=== PATIENT | male | born 1965 | race Caucasian/White ===

== ENCOUNTER → 2018-07-27 09:59 | Outpatient (CLI) | payer OTHER, SELFPAY ==
[2018-07-27 10:48] LABS: Absolute Lymphocyte Count 0.99 X10^3/ul (0.83-4.51); Absolute Neutrophil Count 6.7 X10^3/uL (2.0-7.7); Basophil# 0.03 X10^3/uL; Basophil% 0.3 % (0-1); Eosinophil# 0.16 X10^3/uL; Eosinophils% 1.8 % (0-5); Hematocrit 39.4 % (40-54); Hemoglobin 13.4 g/dl (13.0-16.5); Lymphocyte # 0.99 X10^3/ul (4.0); Lymphocyte % 11.3 % (19-41); Mean Corpuscular Hgb 28.6 pg (27.0-32.0); Mean Corpuscular Volume 84.2 fL (80-94); Mean Platelet Vol. 10.2 fl (6.2-12.0); Monocyte# 0.83 X10^3/uL; Monocyte% 9.5 % (0-10); Neutrophil # 6.74 X10^3/uL (2.7-7.7); Neutrophil % 76.8 % (47-70); POSITIVE COUNT NO; POSITIVE DIFFERENTIAL NO; POSITIVE MORPHOLOGY NO; Platelet Count 261 K/mm3 (150-450); RBC Distribution Width CV 12.3 % (11.6-14.6); RBC Distribution Width SD 37.2 fl (35.1-43.9); Red Blood Count 4.68 M/mm3 (4.6-6.2); White Blood Count 8.8 K/mm3 (4.4-11.0)
[2018-07-27 10:59] LABS: Erythrocyte Sedimentation Rate 14 mm/hr (0-20)
== END ==
PROVIDERS: Family Provider Family Medicine; PCP Family Medicine; Visit Provider Family Medicine
DX: R50.9 Fever, unspecified (principal)
CPT/HCPCS: 36415; 85025; 85652

== ENCOUNTER → 2019-06-07 08:02 | Outpatient (CLI) | payer OTHER, SELFPAY ==
[2019-06-04 13:48] VITALS: BMI 26.2
[2019-06-07 12:38] LABS: Hemoglobin A1c 6.2 % (4.2-6.3)
[2019-06-07 12:39] LABS: ALB/GLOB Ratio 1.2 RATIO (0.9-2.4); AST(SGOT) 25 U/L (15-37); Alanine Aminotransfer ALT/SGPT 49 U/L (16-61); Albumin, Serum 4.1 g/dL (3.2-5.0); Alkaline Phosphatase 53 U/L (45-117); Anion Gap 7 (5-15); BUN 16 mg/dL (7-18); BUN/Creat Ratio 13.1 RATIO (10-20); Calcium,Total 9.5 mg/dL (8.5-10.1); Chloride 109 mmol/L (98-107); Cholesterol 155 mg/dL (200); Creatinine, Serum 1.22 mg/dL (0.70-1.30); EST Glomerular Filtration Rate 65 mL/min (>60); Est Glom Filt Rate - Afr Amer 79 mL/min (>60); Globulin 3.5 g/dL (2.2-4.2); Glucose 116 mg/dL (74-106); High Density Lipoprotein 38 mg/dL; Potassium 4.2 mmol/L (3.5-5.1); Protein, Total 7.6 g/dL (6.4-8.2); Sodium Level 142 mmol/L (136-145); Triglycerides 170 mg/dL; Very Low Density Lipoprotein 34 mg/dL (5-40)
== END ==
PROVIDERS: Family Provider Family Medicine; PCP Family Medicine; Visit Provider Family Medicine
DX: E78.5 Hyperlipidemia, unspecified (principal); R73.09 Other abnormal glucose
CPT/HCPCS: 36415; 80053; 80061; 83036

== ENCOUNTER → 2019-12-04 09:25 | Outpatient (CLI) | payer OTHER, SELFPAY ==
[2019-12-04 09:09] VITALS: BMI 26.0
[2019-12-04 12:44] LABS: PSA,Total - Annual Screen 0.09 ng/mL (0.00-4.00)
== END ==
PROVIDERS: Family Provider Family Medicine; PCP Family Medicine; Visit Provider Family Medicine
DX: R35.0 Frequency of micturition (principal)
CPT/HCPCS: 36415; 84153; G0103

== ENCOUNTER 2019-12-27 07:48 | Day surgery (SDC) | payer OTHER, SELFPAY ==
[2019-12-04 09:09] VITALS: BMI 26.0
[2019-12-27 08:00] VITALS: BP 123/97; PULSE 83; RESP 16; TEMP 36.2; O2SAT 97; BMI 25.9
[2019-12-27] MEDS: Lactated Ringers 1,000 ML 75 ML IV (08:33)
--- NOTE | 2019-12-27 08:41 | H&P.OPEN ---
History of Present Illness Date of Admission: 12/27/19 The patient is a 54 year old M here for screening colonoscopy. Patient is never had a colonoscopy in the past he reports no blood in his stool or abdominal pain. He denies family history of colon cancer. Past Medical/Surgical History - Planned Operation Planned Operative Procedure/s: COLONOSCOPY Date of Operative Procedure: 12/27/19 Permit Signed: Yes S.O.S: No Is This Patient Having a Total Joint: No - Previous Hospitalizations/Surgeries HX Hospitalizations: No HX of Surgeries: WISDOM TEETH. TEETH EXTRACTION Any Problems With Anesthesia: No You/Your Family Experience Fever (Hyperthermia) With Anes: No Cholinesterase deficiency: No - Cardiovascular Hx Chest Pain within Last 2 months: No Hx of Irregular Heartbeat and/or Afib: No Hx Heart Attack: No Hx Congestive Heart Failure: No Hx Rheumatic Fever: No Hx Hypertension: Yes - ON MED, CONTROLLED Hx Internal Defibrillator: No Hx Pacemaker: No Hx Cardiac Catheterization: No Hx Cardiac Surgery/Stents/Etc.: No Hx Stress Test: No HX Edema: No Hx Pain in Legs when Walking/Leg Cramps: No - Respiratory Chronic Cough: No HX of Shortness of Breath: No Hoarseness: No Hx Chronic Obstructive Pulmonary Disease (COPD): No Hx Asthma: No Hx Emphysema: No Hx Sleep Apnea: No Hx Oxygen Use at Home: No Hx Respiratory Tract Infection/Cold (presently): No Do You Snore Loudly (louder than talking or can be heard): Yes Do You Often Feel Tired/ Fatigued/ Sleepy Dring Daytime?: No Has Anyone Observed You Stop Breathing During Sleep?: No Result (for STOP score): Positive Hx Smoking: Yes Smoking Status: Former smoker - Gastrointestinal Hx Gastroesophageal Reflux: No Hx Gastrointestinal Disorders: No Hx Gastrointestinal Bleed: No Hx Ulcer: No Hx Hiatal Hernia: No Difficulty Chewing/Swallowing: No Recent Onset of Swallowing Problems: No Special diet followed at home: No Hx Unplanned Weight Loss of 20#: No HX Unplanned Weight Gain of 20#: No - Neurological Hx Seizures: No HX Syncope/Blackout Spells/Unconsciousness: No Hx CVA/Stroke: No Hx Transient Ischemic Attacks (TIA): No Hx Multiple Sclerosis: No Hx Parkinson's Disease: No Hx Head/Neck Injury: No Hx Headaches: No Hx Back Injury/Pain: No Recent Onset of Speech Difficulty: No Restless Legs: No Does patient have nerve stimulator: No - Blood Disorder Hx Leukemia: No Bleeding Tendencies: No Hx Deep Vein Thrombosis: No Hx High Cholesterol: Yes - ON MED Blood Transmitted Disease: No Hx Hepatitis: No Hx Cirrhosis: No Hx Anemia: No Hx Blood Disorders: No - Genitourinary Hx Renal Disease: No - Musculoskeletal Hx Arthritis: No Hx Rheumatoid Arthritis: No Hx Gout: No Recent Onset of an Orthopedic Problem: No - Endocrine Hx Diabetes: No Thyroid Disease: No Hx Steroid Therapy: No - Psycho/Social Hx Substance Use: No Hx Alcohol Use: Yes - DAILY-2 BEERS DAILY Hx Anxiety: No Hx Depression: No Mental Illness: No Hx Dementia: No - Miscellaneous Hx Cancer: No Recent Exposure to Contagious Disease: No Active MRSA: No Hx of C-Diff: No Any Loose Teeth: No Allergies nuts Allergy (Intermediate, Uncoded 12/26/19 09:00) Swelling tongue - Discharge Is Pt Admitted From a Group Home, or a Long-Term: No Who Could Help: After D/C, Where Do you Plan to Go: Return Home - Physical Exam Vitals/I&O's: Vital Signs Temp Pulse Resp BP Pulse Ox 97.1 F L 83 16 123/97 H 97 12/27/19 08:00 12/27/19 08:00 12/27/19 08:00 12/27/19 08:00 12/27/19 08:00 Oxygen Delivery Method Room Air Weight: 170 lb 3.15 oz Body Mass Index (BMI) 25.9 General: Alert, Oriented x3 Neck: Supple, No JVD Lungs: Normal air movement Cardiovascular: Regular rate, Regular Rhythm Abdomen: Soft, Non Tender, Non-Distended Current Medications Lactated Ringer's () 1,000 mls @ 75 mls/hr IV .[id number] Last Admin: 12/27/19 08:33 Dose: 75 mls/hr Documented by: Assessment/Plan 54-year-old male screening colon cancer I explained endoscopy in detail to the patient. I explained the risks including but not limited to stroke or heart attack with anesthesia, perforation of the GI tract, bleeding, infection. I explained that any of these could necessitate further emergency surgery. The patient understands and all questions were answered sufficiently. The patient wishes to proceed with procedure. Carl Casey MD Pager: [facility] [address] [place] [address], [address] [place] [address] Office: Surgery Risks - Colonoscopy Risks Include but are not Limited To: Risks include but are not limited to: Bleeding, perforation requiring further surgery, inability to complete colonoscopy requiring barium enema.
--- NOTE | 2019-12-27 09:00 | COLBX_PTH ---
PATIENT: ERLIN BARNES LOC: EN U#:[id number] AGE/SX: 54/M ROOM: RE12/27/[address]: Dr. Carl Casey MD : 1965 BED: DIS: 12/27/2019 SPEC #: [id number] RECD: 12/27/19 13:29 STATUS: EMIGDIO SHAW #: [id number] NEL: 12/27/19 09:[address]: Carl Casey DEPT: SURGICAL PATHOLOGY RECD BY: Mayte Rodriguez ENTERED: 12/27/19 14:15 SP TYPE: COLON BX OT DR: Dr. Clive Araujo, DO Tissues: A - Descending colon B - Rectum, NOS Procedures: Surgery Specimen Level IV HEADER OPERATION: Colonoscopy - open access (MAC) PRE-OP DIAGNOSIS: Screening TISSUE SUBMITTED: A - Descending colon polyp biopsy, B - Rectal polyp biopsy MICROSCOPIC DIAGNOSIS A. Descending colon polyp, biopsy: A fragment of colonic mucosa, no pathologic diagnosis. B. Rectal polyp, biopsy: Hyperplastic polyp. SJ:maryjane 12/30/19 MICROSCOPIC DESCRIPTION Slides are reviewed. GROSS DESCRIPTION A - Received in fixative is one container labeled with the patient's name and designated descending colon polyp. The specimen consists of one irregular fragment of light hooper soft tissue that measures 0.3 x 0.2 x <0.1 cm. The specimen is totally submitted in one cassette. B - Received in fixative is one container labeled with the patient's name and designated rectal polyp. The specimen consists of one irregular fragment of light hooper soft tissue that measures 0.4 x 0.3 x 0.1 cm. The specimen is totally submitted in one cassette. / AM:maryjane 12/27/19 TC:1 CPT: 38077 x2
--- NOTE | 2019-12-27 09:07 | OP.CCLET_ITS ---
12/27/2019 Clive Araujo Re : Colonoscopy procedure for Vickey Justice Dear Dr. Araujo This procedure was performed on Friday, December 27, 2019. My impressions and recommendations are as follows: Impressions : - Two small polyps in the rectum and in the descending colon, removed with a cold biopsy forceps. Resected and retrieved. - The examination was otherwise normal on direct and retroflexion views. Recommendations : - Discharge patient to home. - Resume previous diet. - Continue present medications. - Await pathology results. - Repeat colonoscopy for surveillance based on pathology results. My findings are described in the full procedure note, which is enclosed. If I can be of further assistance, please feel free to contact me at Doctor phone number(s): , Work: . Sincerely, Carl Casey MD 12/27/2019 9:07:08 AM This report has been signed electronically.
--- NOTE | 2019-12-27 09:07 | OP.COLON_ITS ---
Patient Name: Vickey Justice Procedure Date: 12/27/2019 8:38 AM Date of : 1965 Age: 54 Procedure: Colonoscopy Indications: Screening for colorectal malignant neoplasm Providers: Carl Casey MD Referring MD: Clive Araujo Medicines: Monitored Anesthesia Care Patient Profile: This is a 54 year old male. Refer to note in patient chart for documentation of history and physical. Last Colonoscopy: none. The patient's first colonoscopy is today. Complications: No immediate complications. Estimated blood loss: Minimal. Procedure: Pre-Anesthesia Assessment: - Prior to the procedure, a History and Physical was performed, and patient medications and allergies were reviewed. The patient's tolerance of previous anesthesia was also reviewed. The risks and benefits of the procedure and the sedation options and risks were discussed with the patient. All questions were answered, and informed consent was obtained. Prior Anticoagulants: The patient has taken no previous anticoagulant or antiplatelet agents. After reviewing the risks and benefits, the patient was deemed in satisfactory condition to undergo the procedure. After I obtained informed consent, the scope was passed under direct vision. Throughout the procedure, the patient's blood pressure, pulse, and oxygen saturations were monitored continuously. The Colonoscope was introduced through the anus and advanced to the cecum, identified by appendiceal orifice and ileocecal valve. The colonoscopy was performed without difficulty. The patient tolerated the procedure well. The quality of the bowel preparation was good. Scope In: 8:52:50 AM Scope Withdrawal Time 0 hours 7 minutes 14 seconds Scope Out: 9:04:06 AM Total Procedure Duration Time 0 hours 11 minutes 16 seconds Findings: Two polyps were found in the rectum and descending colon. The polyps were small in size. These polyps were removed with a cold biopsy forceps. Resection and retrieval were complete. The exam was otherwise without abnormality on direct and retroflexion views. Impression: - Two small polyps in the rectum and in the descending colon, removed with a cold biopsy forceps. Resected and retrieved. - The examination was otherwise normal on direct and retroflexion views. Recommendation: - Discharge patient to home. - Resume previous diet. - Continue present medications. - Await pathology results. - Repeat colonoscopy for surveillance based on pathology results. Procedure Code(s): --- Professional --- 92159, Colonoscopy, flexible; with biopsy, single or multiple Diagnosis Code(s): --- Professional --- Z12.11, Encounter for screening for malignant neoplasm of colon K62.1, Rectal polyp D12.4, Benign neoplasm of descending colon CPT copyright 2017 [employer]. All rights reserved. The codes documented in this report are preliminary and upon critical power technician review may be revised to meet current compliance requirements. Carl Casey MD 12/27/2019 9:07:08 AM This report has been signed electronically. Number of Addenda: 0 Note Initiated On: 12/27/2019 8:38 AM
[2019-12-27 09:09] VITALS: BP 108/84; BP 123/97; PULSE 72; RESP 16; TEMP 36.2; O2SAT 98
[2019-12-27 09:12] VITALS: BP 103/74; BP 123/97; PULSE 80; RESP 16; O2SAT 99
[2019-12-27 09:15] VITALS: BP 103/76; BP 123/97; PULSE 73; RESP 16; O2SAT 97
[2019-12-27 09:21] VITALS: BP 105/78; BP 123/97; PULSE 72; RESP 16; TEMP 36.5; O2SAT 97
[2019-12-27 09:46] VITALS: BP 123/97
== END 2019-12-27 09:47 | disposition home or self-care (01) ==
LOC: EN 07:48 → AC 07:50
PROVIDERS: PCP Family Medicine; Referring Provider Family Medicine; Visit Provider Surgery
PROC: 0DJD8ZZ Inspection of Lower Intestinal Tract, Via Natural or Artificial Opening Endoscopic (ICD-10-PCS; CPT 45378; principal; 2019-12-27 08:55)
DX: Z12.11 Encounter for screening for malignant neoplasm of colon (principal); D12.4 Benign neoplasm of descending colon; K62.1 Rectal polyp; I10 Essential (primary) hypertension; E78.00 Pure hypercholesterolemia, unspecified; Z79.899 Other long term (current) drug therapy; Z87.891 Personal history of nicotine dependence
CPT/HCPCS: 45380; 88305; J7120

== ENCOUNTER → 2020-06-12 09:48 | Outpatient (CLI) | payer OTHER, SELFPAY ==
[2020-06-12 09:17] VITALS: BMI 25.9
[2020-06-12 12:34] LABS: Color, Urine Yellow (Yellow); Glucose, Dipstick Normal (Normal); Ketone-Dipstick Negative (Negative); Leukocyte Esterase-Dipstick Negative /ul (Negative); Nitrite-Dipstick Negative (Negative); Occult Blood-Urine Negative /ul (Negative); Protein-Dipstick Negative (Negative); Specific Gravity, Urine 1.025 (1.002-1.030); Urine Bilirubin Dipstick Negative (Negative); Urine Clarity Clear (Clear); Urine Urobilinogen Normal (Normal)
[2020-06-12 12:48] LABS: ALB/GLOB Ratio 1.4 RATIO (0.9-2.4); AST(SGOT) 25 U/L (15-37); Alanine Aminotransfer ALT/SGPT 59 U/L (16-61); Albumin, Serum 4.5 g/dL (3.2-5.0); Alkaline Phosphatase 45 U/L (45-117); Anion Gap 5 (5-15); BUN 17 mg/dL (7-18); BUN/Creat Ratio 14.8 RATIO (10-20); Calcium,Total 9.3 mg/dL (8.5-10.1); Chloride 108 mmol/L (98-107); Cholesterol 160 mg/dL (200); Creatinine, Serum 1.15 mg/dL (0.70-1.30); EST Glomerular Filtration Rate 70 mL/min (>60); Est Glom Filt Rate - Afr Amer 84 mL/min (>60); Globulin 3.3 g/dL (2.2-4.2); Glucose 120 mg/dL (74-106); High Density Lipoprotein 38 mg/dL; Potassium 4.4 mmol/L (3.5-5.1); Protein, Total 7.8 g/dL (6.4-8.2); Sodium Level 140 mmol/L (136-145); Triglycerides 178 mg/dL; Very Low Density Lipoprotein 36 mg/dL (5-40)
== END ==
PROVIDERS: PCP Family Medicine; Referring Provider Family Medicine; Visit Provider Family Medicine
DX: E78.5 Hyperlipidemia, unspecified (principal); R39.15 Urgency of urination
CPT/HCPCS: 36415; 80053; 80061; 81002

== ENCOUNTER → 2020-12-10 09:03 | Outpatient (CLI) | payer OTHER, SELFPAY ==
[2020-12-10 08:40] VITALS: BMI 27.3
== END ==
PROVIDERS: PCP Family Medicine; Referring Provider Family Medicine; Visit Provider Family Medicine
DX: N40.1 Benign prostatic hyperplasia with lower urinary tract symptoms (principal); R35.1 Nocturia
CPT/HCPCS: 36415; 84153; G0103

== ENCOUNTER → 2021-06-24 08:54 | Outpatient (CLI) | payer OTHER, SELFPAY ==
[2021-06-24 08:36] VITALS: BMI 27.3
[2021-06-24 12:49] LABS: ALB/GLOB Ratio 1.2 RATIO (0.9-2.4); AST(SGOT) 34 U/L (15-37); Alanine Aminotransfer ALT/SGPT 63 U/L (16-61); Albumin, Serum 4.1 g/dL (3.2-5.0); Alkaline Phosphatase 51 U/L (45-117); Anion Gap 8 (5-15); BUN 14 mg/dL (7-18); BUN/Creat Ratio 12.1 RATIO (10-20); Calcium,Total 9.3 mg/dL (8.5-10.1); Chloride 105 mmol/L (98-107); Cholesterol 157 mg/dL (200); Creatinine, Serum 1.16 mg/dL (0.70-1.30); EST Glomerular Filtration Rate 69 mL/min (>60); Est Glom Filt Rate - Afr Amer 83 mL/min (>60); Globulin 3.5 g/dL (2.2-4.2); Glucose 142 mg/dL (74-106); High Density Lipoprotein 34 mg/dL; PSA,Total- Diagnostic 0.11 ng/mL (0.0-4.0); Potassium 4.1 mmol/L (3.5-5.1); Protein, Total 7.6 g/dL (6.4-8.2); Sodium Level 139 mmol/L (136-145); Triglycerides 190 mg/dL; Very Low Density Lipoprotein 38 mg/dL (5-40)
== END ==
PROVIDERS: PCP Family Medicine; Referring Provider Family Medicine; Visit Provider Family Medicine
DX: I10 Essential (primary) hypertension (principal); E78.5 Hyperlipidemia, unspecified
CPT/HCPCS: 36415; 80053; 80061; 84153

== ENCOUNTER → 2021-07-02 10:12 | Outpatient (CLI) | payer OTHER, SELFPAY ==
[2021-06-24 08:36] VITALS: BMI 27.3
[2021-07-02 12:41] LABS: Hemoglobin A1c 6.4 % (3.8-5.6)
== END ==
PROVIDERS: PCP Family Medicine; Referring Provider Family Medicine; Visit Provider Family Medicine
DX: R73.09 Other abnormal glucose (principal)
CPT/HCPCS: 36415; 83036

== ENCOUNTER → 2023-01-04 | Outpatient (CLI) | payer MEDICAID, SELFPAY ==
[2023-01-04 13:10] LABS: ALB/GLOB Ratio 1.2 RATIO (0.9-2.4); AST(SGOT) 23 U/L (15-37); Alanine Aminotransfer ALT/SGPT 39 U/L (16-61); Albumin, Serum 4.2 g/dL (3.2-5.0); Alkaline Phosphatase 40 U/L (45-117); Anion Gap 8 (5-15); BUN 18 mg/dL (7-18); BUN/Creat Ratio 14.5 RATIO (10-20); Calcium,Total 9.2 mg/dL (8.5-10.1); Chloride 108 mmol/L (98-107); Cholesterol 143 mg/dL (200); Creatinine, Serum 1.24 mg/dL (0.70-1.30); EST Glomerular Filtration Rate 63 mL/min (>60); Est Glom Filt Rate - Afr Amer 77 mL/min (>60); Globulin 3.5 g/dL (2.2-4.2); Glucose 131 mg/dL (74-106); High Density Lipoprotein 42 mg/dL; Potassium 4.2 mmol/L (3.5-5.1); Protein, Total 7.7 g/dL (6.4-8.2); Sodium Level 141 mmol/L (136-145); Triglycerides 104 mg/dL; Very Low Density Lipoprotein 21 mg/dL (5-40)
== END | disposition home or self-care (01) ==
LOC: BIMLAB 09:50
PROVIDERS: PCP Family Medicine; Referring Provider Family Medicine; Visit Provider Family Medicine
DX: E78.5 Hyperlipidemia, unspecified (principal); I10 Essential (primary) hypertension
CPT/HCPCS: 36415; 80053; 80061; 83036

== ENCOUNTER → 2023-12-27 | Outpatient (CLI) | payer MEDICAID, SELFPAY ==
--- OUTSIDE RECORDS SUMMARY | 2023-12-27 09:35 | XMS RPT_ITS | CCD ---
Author Name Unknown Address [address] [place] [address] Organization [facility] Care Team Providers Care Metal Mixer Name Role Phone IGNACIA HALEY Unavailable Unavailable LILI MEDEL Unavailable Unavailable Results Test Name Value Interpretation Reference Range Facil ity Encounters Encounter Date Encounter Type Care Provider Facility Start: 05-05-2018 Ambulatory IGNACIA HALEY Facility :B Payers Date Payer Category Payer Private Health Insurance [id number] Summary Purpose Family History No Family History Records Found Advance Directives No Advanced Directives Records Found Additional Source Comments (unrecognized sect ion and content) No Status Records Found INFORMATION SOURCE (unrecogn ized section and content) FOR RECORDS PERTAINING TO PATIENTS WHO ARE OR HAVE BEEN ENROLLED IN A CHEMICAL DEPENDENCY/SUBSTANCEABUSE PROGRAM, SOME INFORMATION MAY BE OMITTED. This clinical summary was aggregated from multiple sources. Caution should be exercised in using it in the provision of clinical care. This summary normalizes information from multiple sources, and as a consequence, information in this document may materially change the coding, format and clinical context of patient data. In addition, data may be omitted in some cases. CLINICAL DECISIONS SHOULD BE BASED ON THE PRIMARY CLINICAL RECORDS. [employer] provides no warranty or guarantee of the accuracy or completeness of information in this document.
[2023-12-27 18:59] LABS: ALB/GLOB Ratio 1.5 RATIO (0.9-2.4); AST(SGOT) 32 U/L (15-37); Alanine Aminotransfer ALT/SGPT 46 U/L (16-61); Albumin, Serum 4.4 g/dL (3.2-5.0); Alkaline Phosphatase 41 U/L (45-117); Anion Gap 6 (5-15); BUN 20 mg/dL (7-18); BUN/Creat Ratio 16.4 RATIO (10-20); Calcium,Total 9.4 mg/dL (8.5-10.1); Chloride 110 mmol/L (98-107); Cholesterol 157 mg/dL (200); Creatinine, Serum 1.22 mg/dL (0.70-1.30); EST Glomerular Filtration Rate 64 mL/min (>60); Est Glom Filt Rate - Afr Amer 78 mL/min (>60); Glucose 128 mg/dL (74-106); High Density Lipoprotein 42 mg/dL; Potassium 3.9 mmol/L (3.5-5.1); Protein, Total 7.4 g/dL (6.4-8.2); Sodium Level 141 mmol/L (136-145); Triglycerides 124 mg/dL; Very Low Density Lipoprotein 25 mg/dL (5-40)
== END | disposition home or self-care (01) ==
LOC: BIMLAB 08:58
PROVIDERS: PCP Family Medicine; Visit Provider Family Medicine
DX: R73.03 Prediabetes (principal); I10 Essential (primary) hypertension; E78.5 Hyperlipidemia, unspecified
CPT/HCPCS: 36415; 80053; 80061

== ENCOUNTER → 2024-09-17 | Outpatient (CLI) | payer MEDICAID, SELFPAY ==
--- OUTSIDE RECORDS SUMMARY | 2024-09-17 11:08 | XMS RPT_ITS | CCD ---
Author Organization [facility] Care Team Providers Care Information Systems Analyst Name Role Phone IGNACIA HALEY Unavailable Unavailable LILI MEDEL Unavailable Unavailable Results Test Name Value Interpretation Reference Range Facil ity .GFRon 05-05-2018 eGFR (non-black) mL/min/{1.73_m2} Normal [facility] ([place]) Comment on above: Result Comment: GFR Population mean for , Non- Americans Ages 20-29 = 116 mL/min/1.73 sq.m. Ages 30-39 = 107 mL/min/1.73 sq.m. Ages 40-49 = 99 mL/min/1.73 sq.m. Ages 50-59 = 93 mL/min/1.73 sq.m. Ages 60-69 = 85 mL/min/1.73 sq.m. Ages 70+ = 75 mL/min/1.73 sq.m.Chronic Kidney Disease: Less than 60 mL/min/1.73 square metersEnd Stage Renal Disease: Less than 15 mL/min/1.73 square meters Performed By: #### L IPID, CMP, GFR ####[facility] [place], [place] [address] eGFR (non-black) 80 ml/min/1.73sqm Normal A [facility] ([place]) Comment on above: Result Comment: GFR Population mean for , Non- Americans Ages 20-29 = 116 mL/min/1.73 sq.m. Ages 30-39 = 107 mL/min/1.73 sq.m. Ages 40-49 = 99 mL/min/1.73 sq.m. Ages 50-59 = 93 mL/min/1.73 sq.m. Ages 60-69 = 85 mL/min/1.73 sq.m. Ages 70+ = 75 mL/min/1.73 sq.m.Chronic Kidney Disease: Less than 60 mL/min/1.73 square metersEnd Stage Renal Disease: Less than 15 mL/min/1.73 square meters Performed By: #### L IPID, CMP, GFR ####[facility] [address] [place], [place] [address] CMPon 05-05-2018 Alanine aminotransferase (ALT) 35 U/L Normal 10-35 [facility] ([place]) Comment on above: Performed By: #### L IPID, CMP, GFR ####[facility] [address] [place], [place] [address] Albumin 4.8 G/dL Normal 3.5-5.0 [facility] ([place]) Comment on above: Performed By: #### L IPID, CMP, GFR ####[facility] [address] [place], [place] [address] Albumin/Globulin Ratio 1.8 {ratio} Normal 1.1-2.5 [facility] ([place]) Comment on above: Performed By: #### L IPID, CMP, GFR ####[facility] [address] [place], [place] [address] Alk Phos 55 IU/L Normal 40-135 [facility] ([place]) Comment on above: Performed By: #### L IPID, CMP, GFR ####[facility] [address] [place], [place] [address] Aspartate aminotransferase (AST) 24 U/L Normal 10-40 [facility] ([place]) Comment on above: Performed By: #### L IPID, CMP, GFR ####[facility] [address] [place], [place] [address] Bili Total 0.4 mg/dL Normal 0.2-1.0 [facility] ([place]) Comment on above: Performed By: #### L IPID, CMP, GFR ####[facility] [address] [place], [place] [address] BUN/Creatinine Ratio 17 ratio Normal 7-27 [facility] ([place]) Comment on above: Performed By: #### L IPID, CMP, GFR ####[facility] [address] [place], [place] [address] Calcium 9.8 mg/dL Normal 8.4-10.2 [facility] ([place]) Comment on above: Performed By: #### L IPID, CMP, GFR ####[facility] [address] [place], [place] [address] Chloride 103 mmol/L Normal 98-107 [facility] ([place]) Comment on above: Performed By: #### L IPID, CMP, GFR ####[facility] [address] [place], [place] [address] CO2 28 mmol/L Normal 22-29 [facility] ([place]) Comment on above: Performed By: #### L IPID, CMP, GFR ####[facility] [address] [place], [place] [address] Creatinine 1.2 mg/dL Normal 0.6-1.2 [facility] ([place]) Comment on above: Performed By: #### L IPID, CMP, GFR ####[facility] [address] [place], [place] [address] Electrolyte Balance 9.0 mEq/L Normal [facility] ([place]) Comment on above: Performed By: #### L IPID, CMP, GFR ####[facility] [address] [place], [place] [address] Globulin 2.7 G/dL Normal [facility] ([place]) Comment on above: Performed By: #### L IPID, CMP, GFR ####[facility] [address] [place], [place] [address] Glucose mass conc 131 mg/dL High 70-105 [facility] ([place]) Comment on above: Performed By: #### L IPID, CMP, GFR ####[facility] [address] [place], [place] [address] Potassium molar conc 4.7 mmol/L Normal 3.5-5.1 [facility] ([place]) Comment on above: Performed By: #### L IPID, CMP, GFR ####[facility] [address] [place], [place] [address] Protein 7.5 G/dL Normal 6.0-8.3 [facility] ([place]) Comment on above: Performed By: #### L IPID, CMP, GFR ####[id number] [place], [place] [address] Sodium 140 mmol/L Normal 136-146 [facility] ([place]) Comment on above: Performed By: #### L IPID, CMP, GFR ####[facility] [address] [place], [place] [address] Urea nitrogen 20.2 mg/dL High 7.0-18.0 [facility] ([place]) Comment on above: Performed By: #### L IPID, CMP, GFR ####[address] [place], [place] [address] LIPIDon 05-05-2018 Cholesterol 170 mg/dL Normal 131-200 [facility] ([place]) Comment on above: Result Comment: Chol esterol Reference Interval:Less than 200 [id number] Borderline high silg193 and above High risk Performed By: #### L IPID, CMP, GFR ####[facility] [address] [place] [address] HDL Cholesterol 40 mg/dL Normal 35-90 [facility] ([place]) Comment on above: Result Comment: HDL Reference Interval:Less than 40 Low - high risk60 or above Optimal/lowers risk Performed By: #### L IPID, CMP, GFR ####[facility] [address] [place], [place] [address] LDL Cholesterol 100 mg/dL Normal 0-130 [facility] ([place]) Comment on above: Result Comment: LDL is a calculated result and requires a 12- hr fast.LDL Reference Interval:Less than 100 [id number] Near or above [id number] Borderline high ptox521-641 High [id number] and above Very high risk Performed By: #### L IPID, CMP, GFR ####[address] [place] [address] Triglyceride 150 mg/dL Normal 40-150 [facility] ([place]) Comment on above: Result Comment: Trig lyceride Reference Interval:Less than 150 [id number] Borderline high [id number] High puse089 or higher Very high risk Performed By: #### L IPID, CMP, GFR ####[id number] [place], [place] [address] Encounters Encounter Date Encounter Type Care Provider Facility Start: 05-05-2018 Ambulatory IGNACIA HALEY Facility :B Payers Date Payer Category Payer Private Health Insurance [id number] Summary Purpose Family History No Family History Records Found Advance Directives No Advanced Directives Records Found Additional Source Comments (unrecognized sect ion and content) No Status Records Found INFORMATION SOURCE (unrecogn ized section and content) DATE CREATED AUTHOR 05/05/2018 [employer] [facility] ([place]) FOR RECORDS PERTAINING TO PATIENTS WHO ARE [...] BE BASED ON THE PRIMARY CLINICAL RECORDS. [employer] provides no warranty or guarantee of the accuracy or completeness of information in this document.
[2024-09-17 12:52] LABS: PSA,Total- Diagnostic 0.18 ng/mL (0.0-4.0)
== END | disposition home or self-care (01) ==
PROVIDERS: PCP Family Medicine; Referring Provider Family Medicine; Visit Provider Family Medicine
DX: R73.03 Prediabetes (principal); I10 Essential (primary) hypertension; N40.1 Benign prostatic hyperplasia with lower urinary tract symptoms; R35.1 Nocturia
CPT/HCPCS: 36415; 83036; 84153

== ENCOUNTER 2024-09-24 13:00 | Outpatient (RCR) | payer MEDICAID, SELFPAY ==
--- NOTE | 2024-09-20 14:28 | HP.PTEVAL_ITS ---
Patient's Visit Information Visit Information Visit Information: ERLIN BARNES is a 58 year old M referred to Physical Therapy by Dr. Clive Araujo DO with a diagnosis of R shoulder pain. Date of Evaluation: 09/20/24 Physical Therapist: Peewee Mahan, PT, ATC Visit Plan Frequency: 2x /Week Duration: 1 Week Plan: Issue and instruct pt on HEP of R shoulder rot cuff and scap stab ex's Subjective Subjective: Pt reports his R shoulder has been sore for a couple years. Pt reports his R shoulder pain is constant in nature, but the intensity varies depending on his activity level. 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 Pt notes he is R hand dominant. Pt reports he is not able to lift his R arm over his head without the help of his L UE. Pt denies any tingling or numbness in R UE. Pt reports sleep difficulty at this time secondary to pain. Pt reports he is unable to use a hammer with R UE secondary to pain. Pt reports he has not had any recent Dx tests performed at this time. Pt reports his R shoulder pain is 4/10 at rest, 8/10 at worst. Pain R shoulder: Pain Intensity (Out of 10): 4 Pain Intensity Range: 8 Objective Objective: Neuro: B UE sensation is WNL to light touch ROM: L shoulder flex= 150, abd= 165, ER= 50, IR= WNL; R shoulder flex= 120, abd= 85, ER= 55, IR= WNL MMT: L shoulder flex= 13, abd= 24, ER= 21, IR= 21 #F; R shoulder flex= 4, abd= 8, ER= 8, IR= 21 #F Palpation: Pt is sore on the lateral aspect of R shoulder and LHB tendon. No obvious deformity is noted at this time. Special tests: Pos empty can, pos HK Balance/Special Test Scores Quick DASH Score: 61.3625 Goals Goal 1:: Pt will be I with HEP in 2-3 visits Goal Time Frame: 2-4 Weeks Goal 2:: Decrease R shoulder pain x 50% to aid with sleep Goal Time Frame: 2-4 Weeks Goal 3:: Increase R shoulder flex and abd x 30 degrees to aid with overhead lifting Goal Time Frame: 2-4 Weeks Rehabilitation Potential Physical Therapy Diagnosis: Pt has R shoulder pain, weakness, and limited ROM secondary to R shoulder rotator cuff insufficiency Rehabilitation Potential: Good Anticipated Interventions Patient/Client Instruction: Educate patient on: Condition and Plan of Care For the Purpose of:: To improve self management Therapeutic Exercise to Include: Strength training, Endurance training, Postural training, Active ROM and Scapular Strength/Stabilization For the Purpose of:: To decrease pain, To increase ROM and To improve muscle performance and motor function Text: Thank you for the opportunity to evaluate your patient. For Medicare and Medicare HMO plans, please review the plan of care and approve it. It will need to be FAXED BACK to us at [phone] for Medicare purposes. For Medicare only, by signing this I certify the plan of care. Please let me know if there are questions or concerns regarding this plan of care. Physician Signature: Date:
--- NOTE | 2024-11-19 13:17 | HP.PT.NRP ---
Patient Information Patient Information: ERLIN BARNES was seen in my office for initial evaluation on 09/20/24. The following Plan of Care was established for this patient: POC Established Initial Frequency: 2x /Week Initial Duration: 1 Week Anticipated Interventions Patient/Client Instruction: Educate patient on: Condition and Plan of Care For the Purpose of:: To improve self management Therapeutic Exercise to Include: Strength training, Endurance training, Postural training, Active ROM and Scapular Strength/Stabilization For the Purpose of:: To decrease pain, To increase ROM and To improve muscle performance and motor function Last Seen Last Seen: This patient was last seen in our office . Pertinent comments regarding their Physical therapy will appear below: Discontinue At this point I will be discontinuing this patient from physical therapy. I would be happy to see this patient again in the future if found appropriate by the physician. Thank you! Peewee Mahan, PT, ATC Balance/Gait/Functional tests Balance/Special Test Scores Quick DASH Score: 61.3625
== END 2024-09-24 19:00 | disposition home or self-care (01) ==
LOC: PT 13:00
PROVIDERS: PCP Family Medicine; Referring Provider Family Medicine; Visit Provider Family Medicine
DX: M25.511 Pain in right shoulder (principal)
CPT/HCPCS: 97110; 97161

== ENCOUNTER → 2024-12-31 | Outpatient (CLI) | payer MEDICAID, SELFPAY ==
[2024-12-31 12:51] LABS: ALB/GLOB Ratio 1.2 RATIO (0.9-2.4); AST(SGOT) 21 U/L (15-37); Alanine Aminotransfer ALT/SGPT 38 U/L (16-61); Albumin, Serum 4.2 g/dL (3.2-5.0); Alkaline Phosphatase 43 U/L (45-117); Anion Gap 7 (5-15); BUN 19 mg/dL (7-18); BUN/Creat Ratio 16.8 RATIO (10-20); Calcium,Total 9.6 mg/dL (8.5-10.1); Chloride 109 mmol/L (98-107); Cholesterol 154 mg/dL (200); Creatinine, Serum 1.13 mg/dL (0.70-1.30); EST Glomerular Filtration Rate 70 mL/min (>60); Est Glom Filt Rate - Afr Amer 85 mL/min (>60); Globulin 3.4 g/dL (2.2-4.2); Glucose 116 mg/dL (74-106); High Density Lipoprotein 52 mg/dL; PSA,Total - Annual Screen 0.19 ng/mL (0.00-4.00); Potassium 4.1 mmol/L (3.5-5.1); Protein, Total 7.6 g/dL (6.4-8.2); Sodium Level 141 mmol/L (136-145); Triglycerides 122 mg/dL; Very Low Density Lipoprotein 24 mg/dL (5-40)
== END | disposition home or self-care (01) ==
LOC: BIMLAB 08:49
PROVIDERS: PCP Family Medicine; Referring Provider Family Medicine; Visit Provider Family Medicine
DX: N40.1 Benign prostatic hyperplasia with lower urinary tract symptoms (principal); R35.1 Nocturia; I10 Essential (primary) hypertension; E78.5 Hyperlipidemia, unspecified
CPT/HCPCS: 36415; 80053; 80061; 84153; G0103

== ENCOUNTER → 2025-08-20 | Outpatient (CLI) | payer MEDICAID, SELFPAY ==
--- NOTE | 2025-08-20 12:41 | RAD_ITS ---
PROCEDURE: SHOULDER MIN 2 VIEWS 08/20/2025 REASON FOR EXAM: SHOULDER PAIN X 2 YEARS TECHNIQUE: Procedure Code: RADSH Modality: DX Procedure: SHOULDER MIN 2 VIEWS Laterality: Right COMPARISON: None FINDINGS: There is no evidence of fracture or dislocation. There is mild arthritis of the glenohumeral joint. There is mild arthritis of the acromioclavicular joint. The periarticular soft tissues are normal. RAD/Shoulder min 2 Views IMPRESSION: DEGENERATIVE OSTEOARTHROSIS. NO ACUTE FINDINGS. Reading Location: [place] [address]
== END | disposition home or self-care (01) ==
LOC: MTRAD 12:41
PROVIDERS: PCP Family Medicine; Referring Provider Family Medicine; Visit Provider Family Medicine
DX: M12.811 Other specific arthropathies, not elsewhere classified, right shoulder (principal)
CPT/HCPCS: 73030